=== PATIENT | male | born 1975 | race Two or more races ===

== ENCOUNTER 2024-08-22 14:21 | Emergency (ER) | payer SELFPAY | END 2024-08-22 14:42 | disposition left against medical advice (07) | LOC: ER 14:21 | DX: J00 Acute nasopharyngitis [common cold] (principal); Z53.21 Procedure and treatment not carried out due to patient leaving prior to being seen by health care provider ==

== ENCOUNTER 2024-09-09 11:14 | Emergency (ER) | payer OTHER ==
[~2024-09-09] VITALS: Ht 180.3 cm; Wt 90.7 kg
--- NOTE | 2024-09-09 11:56 | ED.PDOC ---
Lashayt. trauma (HPI) HPI Comments 49 y.o male presents to the ED for a chief complaint of left back pain radiating to her left rib s/p fall last night off his trailer steps. Patient reports falling off the second step and fell onto a table. Patient denies any LOC, head injuries, dizziness, lightheadedness, nausea, vomiting. Patient denies medical history or allergies. Chief Complaint: Fall Injury Time Seen by MD: 11:44 Reviewed notes: Nurses Notes, Medications, Allergies Allergies: Coded Allergies: NO KNOWN ALLERGIES (Unverified , 09/09/24) Home Meds Active Scripts Hydrocodone-Acetaminophen (Hydrocodone Bitartrate/AC 5-325 mg) 1 Tab Tab, 1 TAB PO Q8HP PRN for 7 Days, #21 TAB Prov:KIANNA LE MD 09/09/24 Information Source: Patient Mode of Arrival: Ambulatory Severity: Moderate Timing: Days (1) Duration: Since onset Location: Back Mechanism: Fall Past Medical History PAST MEDICAL HISTORY: Denies Surgical History: Denies all surgeries Family History Family History: Reviewed,noncontributory to illness Social History Smoker: Non-Smoker Alcohol: Occasionally Drugs: Denies Drug Use Lives In: Home Constitutional: denies: chills, diaphoresis, fatigue, fever, malaise, sweats, weakness, others EENTM: denies: blurred vision, double vision, ear bleeding, ear discharge, ear drainage, ear pain, ear ringing, eye pain, eye redness, hearing loss, mouth pain, mouth swelling, nasal discharge, nose bleeding, nose congestion, nose pain, photophobia, tearing, throat pain, throat swelling, voice changes, others Respiratory: denies: cough, hemoptysis, orthopnea, SOB at rest, shortness of breath, SOB with excertion, stridor, wheezing, others Cardiovascular: denies: chest pain, dizzy spells, diaphoresis, Dyspnea on exertion, edema, irregular heart beat, left arm pain, lightheadedness, palpitations, PND, syncope, others Gastrointestinal: denies: abdomen distended, abdominal pain, blood streaked bowels, constipated, diarrhea, dysphagia, difficulty swallowing, hematemesis, melena, nausea, poor appetite, poor fluid intake, rectal bleeding, rectal pain, vomiting, others Genitourinary: denies: burning, dysuria, flank pain, frequency, hematuria, incontinence, penile discharge, penile sore, pain, testicle pain, testicle swelling, urgency, others Neurological: denies: dizziness, fainting, headache, left sided numbness, left sided weakness, numbness, paresthesia, pre-existing deficit, right sided numbness, right sided weakness, seizure, speech problems, tingling, tremors, weakness, others Musculoskeletal: reports: back pain, others (left sided rib pain ); denies: gout, joint pain, joint swelling, muscle pain, muscle stiffness, neck pain Integumetry: denies: bruises, change in color, change in hair/nails, dryness, laceration, lesions, lumps, rash, wounds, others Allergic/Immunocompromised: denies: Difficulty Healing, Frequent Infections, Hives, Itching, others Hematologic/Lymphatic: denies: anemia, blood clots, easy bleeding, easy bruising, swollen glands, others Endocrine: denies: excessive hunger, excessive sweating, excessive thirst, excessive urination, flushing, intolerance to cold, intolerance to heat, unexplained weight gain, unexplained weight loss, others Psychiatric: denies: anxiety, bipolar disorder, depression, hopeless, panic disorder, schizophrenia, sleepless, suicidal, others All Other Systems: Reviewed and Negative Physical Exam General Appearance: Moderate Distress HEENT: Normal ENT Inspection, Pharynx Normal, TMs Normal Neck: Full Range of Motion, Non-Tender, Normal, Normal Inspection Respiratory: Lungs Clear, No Accessory Muscle Use, No Respiratory Distress, Normal Breath Sounds, Other (Tenderness to the left rib region) Cardiovascular: No Edema, No JVD, No Murmur, No Gallop, Normal Peripheral Pulses, Regular Rate/Rhythm Breast Exam: Deferred Gastrointestinal: No Organomegaly, Non Tender, No Pulsatile Mass, Normal Bowel Sounds, Soft Genitalia: Deferred Pelvic: Deferred Rectal: Deferred Extremities: No calf tenderness, Normal capillary refill, Normal inspection, N ormal range of motion, Non-tender, No pedal edema Musculoskeletal : Apperance: Normal Neurologic: Alert, digital service engineer II-XII nml as Tested, No Motor Deficits, Normal Affect, Normal Mood, No Sensory Deficits Cerebellar Function: Normal Reflexes: Normal Skin: Dry, Normal Color, Warm Lymphatic: No Adenopathy Was a procedure done? Was a procedure done?: No EKG EKG : Pulse Rate (adult): 97 Cardiac Rhythm: NSR Differential Diagnosis Multiple Trauma: Fractures, Pneumothorax, Contusion X-Ray, Labs, Meds, VS Vital Signs Date Time Temp Pulse Resp B/P (MAP) Pulse Ox O2 Delivery O2 Flow Rate FiO2 09/09/24 12:14 97 09/09/24 11:29 94 09/09/24 11:15 98.6 96 17 144/97 (113) 98 98.6 09/09/24 11:14 98.6 96 17 144/97 (113) 98 98.6 X-ray of the left ribs show: IMPRESSION: 1. Acute nondisplaced fractures of the left 7th through 10th ribs. At this time, the patient is being discharged The patient was given a prescription of [place] The patient is to follow up with his primary care doctor The patient will return to the emergency department's condition worsens. Images Reviewed?: Images reviewed and evaluated by me Time of 1ST Reevaluation: 11:56 Reevaluation 1ST: Unchanged Reevaluation 2ND: Improved Patient Education/Counseling: Diagnosis, Treatment, Prognosis, Need For Follow Up Family Education/Counseling: No Family Present Departure 1 Departure Time of Disposition: 12:35 Impression: Primary Impression: Multiple rib fractures Qualified Codes: S22.42XA - Multiple fractures of ribs, left side, initial encounter for closed fracture Disposition: 01 HOME / SELF CARE / HOMELESS Condition: Fair e-Prescriptions Hydrocodone-Acetaminophen (Hydrocodone Bitartrate/AC 5-325 mg) 1 Tab Tab 1 TAB PO Q8HP PRN for 7 Days, #21 TAB Prov: KIANNA LE MD 09/09/24 Discharged With: Self Critical Care Note Critical Care Time?: No Stability Stability form required: No Heart Score Heart Score: Heart Score Response (Comments) Value History N/A 0 EKG N/A 0 Age N/A 0 Risk Factors N/A 0 Troponin N/A 0 Total 0 I personally scribed for KIANNA LE MD ([email or web address]) on 09/09/24 at 11:56. Electronically submitted by Christina Agarwal ([facility]). I personally scribed for KIANNA LE MD ([email or web address]) on 09/09/24 at 12:14. Electronically submitted by Christina Agarwal ([facility]). KIANNA LE MD September 09, 2024 11:56
--- NOTE | 2024-09-09 12:29 | DVH ---
EXAMINATION: XY L RIB X RAY INDICATION: fall COMPARISON: None TECHNIQUE: Frontal and oblique views of the left ribs FINDINGS: No focal consolidation, pleural effusion or significant pneumothorax. Normal cardiomediastinal silhou ette. Acute nondisplaced fractures of the left 7th, 8th and 9th ribs. Acute fracture through the left 10th rib as well. IMPRESSION: 1. Acute nondisplaced fractures of the left 7th through 10th ribs.
[2024-09-09] MEDS ORDERED: HYDR-4902 PO (12:32)
[2024-09-09] MEDS: HYDROcodone-ACET 10/325MG TAB PO ONE (12:35)
[2024-09-09] MEDS: BUPIVACAINE 0.25% INJ 50ML VIAL ONE (14:01)
[2024-09-09 14:24] VITALS: BP 144/88; PULSE 80; RESP 20; TEMP 98.6; O2SAT 99
--- NOTE | 2024-09-10 07:24 | ECG ---
[facility] Test Date: 2024-09-09 Test Time: 11:29:58 Pat Name: SIA MIRANDA Department: ER Room: Gender: M Desktop Manager: SIDDHARTH : 1975 Requested By: KIANNA LE Order Number: [id number] Reading MD: Tolu Bella Measurements Intervals [place] Rate: 94 P: 77 NE: 150 QRS: 72 QRSD: 113 T: 27 QT: 346 QTc: 433 Interpretive Statements Sinus rhythm IRBBB and LPFB Abnormal inferior Q waves Electronically Signed On 09-10-2024 12:15:53 PDT by Tolu Bella Please click the below link to view image of tracing.
== END 2024-09-09 14:32 | disposition home or self-care (01) ==
LOC: ER 11:14
DX: S22.42XA Multiple fractures of ribs, left side, initial encounter for closed fracture (principal); W10.8XXA Fall (on) (from) other stairs and steps, initial encounter; Y93.01 Activity, walking, marching and hiking; Y92.89 Other specified places as the place of occurrence of the external cause; Y99.8 Other external cause status
CPT/HCPCS: 71101; 93005; J3490

== ENCOUNTER 2024-09-19 07:39 | Emergency (ER) | payer OTHER ==
[~2024-09-19] VITALS: Ht 180.3 cm; Wt 91.6 kg
[~2024-09-19 07:39] MED LIST: HYDR-4902 PO
--- NOTE | 2024-09-19 09:29 | ED.PDOC ---
History of Present Illness HPI Comments A 49 year old male presents to the ED c/o left rib pain due to rib fractures. Patient reports he was diagnosed with multiple rib fractures on the left side about 1.5 weeks ago. Patient states he was still experiencing pain despite taking [id number] pain medications and would like to have another piece of imaging done today here in the ED to make sure his left ribs are healing appropriately. Denies fever, SOB, chest pain, abdominal pain, nausea, vomiting, diarrhea, headache, dizziness, vision changes, or numbness/tingling of extremities. No other symptoms or modifying factors reported at this time. Patient is alert and oriented x4 and has a stable gait. Chief Complaint: Rib Pain Time Seen by MD: 08:05 Primary Care Provider: NEW Reviewed Notes: Nurses Notes, Medications, Allergies Allergies: Coded Allergies: NO KNOWN ALLERGIES (Unverified , 09/09/24) Home Meds Active Scripts Cyclobenzaprine Hcl (Cyclobenzaprine Hcl) 5 Mg Tab, 1 TAB PO QPM, #30 TAB 0 Refills Prov:SHAGGY GARCIA NP 09/19/24 Hydrocodone-Acetaminophen (Hydrocodone Bitartrate/AC 5-325 mg) 1 Tab Tab, 1 TAB PO Q8HP PRN for 7 Days, #21 TAB Prov:KIANNA LE MD 09/09/24 Information Source: Patient Mode of Arrival: Ambulatory Severity: Moderate Timing: Days Duration: Since onset, Days Prehospital treatment: None Medication Refill: For: Other (Left rib pain) Past Medical History PAST MEDICAL HISTORY: Denies Surgical History: Denies all surgeries Family History Family History: Reviewed,noncontributory to illness Social History Smoker: Non-Smoker Alcohol: Occasionally Drugs: Denies Drug Use Lives In: Home Constitutional: denies: chills, diaphoresis, fatigue, fever, malaise, sweats, weakness, others EENTM: denies: blurred vision, double vision, ear bleeding, ear discharge, ear drainage, ear pain, ear ringing, eye pain, eye redness, hearing loss, mouth pain, mouth swelling, nasal discharge, nose bleeding, nose congestion, nose pain, photophobia, tearing, throat pain, throat swelling, voice changes, others Respiratory: denies: cough, hemoptysis, orthopnea, SOB at rest, shortness of breath, SOB with excertion, stridor, wheezing, others Cardiovascular: denies: chest pain, dizzy spells, diaphoresis, Dyspnea on exertion, edema, irregular heart beat, left arm pain, lightheadedness, pa lpitations, PND, syncope, others Gastrointestinal: denies: abdomen distended, abdominal pain, blood streaked bowels, constipated, diarrhea, dysphagia, difficulty swallowing, hematemesis, melena, nausea, poor appetite, poor fluid intake, rectal bleeding, rectal pain, vomiting, others Genitourinary: denies: burning, dysuria, flank pain, frequency, hematuria, incontinence, penile discharge, penile sore, pain, testicle pain, testicle swelling, urgency, others Neurological: denies: dizziness, fainting, headache, left sided numbness, left sided weakness, numbness, paresthesia, pre-existing deficit, right sided numbness, right sided weakness, seizure, speech problems, tingling, tremors, weakness, others Musculoskeletal: reports: others (Left rib pain); denies: back pain, gout, joint pain, joint swelling, muscle pain, muscle stiffness, neck pain Integumetry: denies: bruises, change in color, change in hair/nails, dryness, laceration, lesions, lumps, rash, wounds, others Allergic/Immunocompromised: denies: Difficulty Healing, Frequent Infections, Hives, Itching, others Hematologic/Lymphatic: denies: anemia, blood clots, easy bleeding, easy bruising, swollen glands, others Endocrine: denies: excessive hunger, excessive sweating, excessive thirst, excessive urination, flushing, intolerance to cold, intolerance to heat, unexplained weight gain, unexplained weight loss, others Psychiatric: denies: anxiety, bipolar disorder, depression, hopeless, panic disorder, schizophrenia, sleepless, suicidal, others All Other Systems: Reviewed and Negative Physical Exam General Appearance: No Apparent Distress, Normal HEENT: Normal ENT Inspection, Pharynx Normal, TMs Normal Neck: Full Range of Motion, Non-Tender, Normal, Normal Inspection Respiratory: Chest Non-Tender, Lungs Clear, No Accessory Muscle Use, No Respiratory Distress, Normal Breath Sounds Cardiovascular: No Edema, No JVD, No Murmur, No Gallop, Normal Peripheral Pulses, Regular Rate/Rhythm Breast Exam: Deferred Gastrointestinal: No Organomegaly, Non Tender, No Pulsatile Mass, Normal Bowel Sounds, Soft Genitalia: Deferred Pelvic: Deferred Rectal: Deferred Extremities: No calf tenderness, Normal capillary refill, Normal inspection, Normal range of motion, Non-tender, No pedal edema Musculoskeletal : Apperance: Normal Neurologic: Alert, timber deadener II-XII nml as Tested, No Motor Deficits, Normal Affect, Normal Mood, No Sensory Deficits Cerebellar Function: Normal Reflexes: Normal Skin: Dry, Normal Color, Warm Lymphatic: No Adenopathy Was a procedure done? Was a procedure done?: No Differential Dx Considerations may include: Left rib pain, history of multiple left rib fractures, pain management X-Ray, Labs, Meds, VS Vital Signs Date Time Temp Pulse Resp B/P (MAP) Pulse Ox O2 Delivery O2 Flow Rate FiO2 09/19/24 10:05 98.1 74 16 138/79 (98) 98 98.1 09/19/24 09:08 98.3 82 18 140/92 (108) 98 98.3 09/19/24 09:08 82 18 98 Room Air 09/19/24 07:52 98.3 82 18 140/92 (108) 98 98.3 PATIENT: GILDA MIRANDAT: [id number]: [id number] : 1975 LOC: ER ROOM / BED: / AGE / SEX: 49 / M ADM STATUS: REG ER SERVICE [id number] ORDERING PHYSICIAN: SHAGGY GARCIA NP PROCEDURE(s): LRIBS - L RIB X RAY REASON: hx of rib fracture. r/o hemothorax or serious pathology ORDER NUMBER(s): [id number], ACCESSION NUMBER(s): [id number] EXAMINATION: XY L RIB X RAY INDICATION: Hx of rib fracture. r/o hemothorax or serious pathology COMPARISON: XY L RIB X RAY on DOS: 09/09/24 TECHNIQUE: Frontal view of the chest and oblique views of the left ribs history FINDINGS: No focal consolidation, pleural effusion or significant pneumothorax. Normal cardiomediastinal silhouette. There are slightly displaced fractures of the left 6th, 7th, 8th, 9th and 10th ribs. IMPRESSION: 1. No acute cardiopulmonary disease. 2. Fractures of the left 6th through 10th ribs. ATED BY: DAMON SILVA MD DICTATED DATE/TIME: 09/19/241007 SIGNED BY: DAMON SILVA MD SIGNED DATE/TIME: 09/19/241007 CC: X-Ray, Labs, Meds, VS Comment On reevaluation, patient had symptomatic improvement. Patient is stable for discharge at this time. External notes reviewed. Test results and diagnostic imaging interpreted. All diagnostic findings, discharge care, education and instructions provided Follow-up with PCP in 2 to 3 days Patient verbalized understanding and agreed to treatment plan Vital signs stable, afebrile, no acute distress noted Patient ambulatory with strong steady gait Advised to return precautions for any new or worsening symptoms, return to ER immediately for re-evaluation Patient is aware that the purpose of this visit was for an acute medical emergency requiring emergent stabilization. Chronic conditions, including malignancies have not been ruled out. Patient is instructed to follow up with PCP as directed and discharge instructions for continued care and workup. If unable to arrange follow-up, patient is to return to the emergency department for reassessment. Patient (parent or legal guardian if applicable) was given verbal and written discharge instructions and acknowledges understanding. External Medical Records Reviewed: Independent historians: Patient Social Determinants of Health: [None] Labs Ordered: None Reviewed and interpreted results: None Radiology imaging ordered: XR ribs LT Treatments ordered: None Procedures Performed: None Critical Care Time: None I have discussed the patient with the attending physician Dr. Lares and he agrees with the patient's plan of care and disposition. Based on history of present illness, and physical exam, patient will be discharged home. Discussed plan for discharge home with Rx [Flexeril 5 mg]. Medication warnings given. Images Reviewed?: Images reviewed and evaluated by me Time of 1ST Reevaluation: 10:00 Reevaluation 1ST: Improved Patient Education/Counseling: Diagnosis, Treatment, Need For Follow Up Family Education/Counseling: Diagnosis, Treatment, Need For Follow Up Departure 1 Departure Time of Disposition: 10:13 Impression: Primary Impression: Multiple rib fractures Qualified Codes: S22.42XS - Multiple fractures of ribs, left side, sequela Disposition: HOME / SELF CARE / HOMELESS Condition: Stable Additional Instructions: Follow up with PCP in 1-2 days. Take medications as prescribed. Return to ED for any new or worsening symptoms. e-Prescriptions Cyclobenzaprine Hcl (Cyclobenzaprine Hcl) 5 Mg Tab 1 TAB PO QPM, #30 TAB 0 Refills Prov: SHAGGY GARCIA NP 09/19/24 Discharged With: Self Critical Care Note Critical Care Time?: No Stability Stability form required: No Heart Score Heart Score: Heart Score Response (Comments) Value History N/A 0 EKG N/A 0 Age N/A 0 Risk Factors N/A 0 Troponin N/A 0 Total 0 I personally scribed for SHAGGY GARCIA NP ([email or web address]) on 09/19/24 at 09:28. Electronically submitted by Compa Garcia ([email or web address]). I personally scribed for SHAGGY GARCIA NP ([email or web address]) on 09/19/24 at 10:17. Electronically submitted by Compa Garcia ([email or web address]). SHAGGY GARCIA NP Sep 19, 2024 09:28
[2024-09-19 10:05] VITALS: BP 138/79; PULSE 74; RESP 16; TEMP 98.1; O2SAT 98
--- NOTE | 2024-09-19 10:10 | DVH ---
EXAMINATION: XY L RIB X RAY INDICATION: Hx of rib fracture. r/o hemothorax or serious pathology COMPARISON: XY L RIB X RAY on DOS: 09/09/24 TECHNIQUE: Frontal view of the chest and oblique views of the left ribs history FINDINGS: No focal consolidation, pleural effusion or significant pneumothorax. Normal cardiomediastinal silhou ette. There are slightly displaced fractures of the left 6th, 7th, 8th, 9th and 10th ribs. IMPRESSION: 1. No acute cardiopulmonary disease. 2. Fractures of the left 6th through 10th ribs.
[2024-09-19] MEDS ORDERED: CYCL-837 PO (10:17)
== END 2024-09-19 10:17 | disposition home or self-care (01) ==
LOC: ER 07:39
DX: S22.42XA Multiple fractures of ribs, left side, initial encounter for closed fracture (principal); X58.XXXA Exposure to other specified factors, initial encounter; Y93.89 Activity, other specified; Y92.89 Other specified places as the place of occurrence of the external cause; Y99.8 Other external cause status
CPT/HCPCS: 71101